=== PATIENT | male | born 1945 | race Caucasian/White ===

== ENCOUNTER 2017-07-11 01:15 | Emergency (ER) | payer MEDICARE ==
[~2017-07-11] VITALS: Ht 177.8 cm; Wt 88.2 kg
[~2017-07-11 01:15] MED LIST: AMOXICILLIN500 MG PO; ATENOLOL25 MG PO; HYDROCHLOR12.5 MG/CA PO; LORTAB5 PO
[2017-07-11 01:43] VITALS: BP 189/88
[2017-07-11] MEDS ORDERED: GENTAMICIN15 ML/BTL OD (02:05)
[2017-07-11] MEDS ORDERED: (None)3.5 GM OD (02:05)
== END 2017-07-11 02:14 | disposition home or self-care (01) ==
LOC: ED 01:15
DX: H10.9 Unspecified conjunctivitis (principal); I10 Essential (primary) hypertension; I25.2 Old myocardial infarction; F17.210 Nicotine dependence, cigarettes, uncomplicated; Z95.5 Presence of coronary angioplasty implant and graft

== ENCOUNTER 2017-08-30 01:37 | Emergency (ER) | payer MEDICARE ==
[~2017-08-30] VITALS: Ht 177.8 cm; Wt 87.2 kg
[~2017-08-30 01:37] MED LIST changes: +(None)3.5 GM OD; +GENTAMICIN15 ML/BTL OD
[2017-08-30 02:29] LABS: HEMATOCRIT 39.1 % (39.0-50.0); IMMATURE GRANULOCYTES 0.3 % (0.0-1.0); MEAN CELL VOLUME 92.4 fL CALC (80.0-100.0); MEAN CORPUSCULAR HGB 29.6 pG CALC (26.0-32.0); NEUT# 7.04 thou/uL (1.82-7.42); RED BLOOD COUNT 4.23 mill/uL (4.70-6.10); RED CELL DISTRI WIDTH 14.2 % (11.5-15.5)
[2017-08-30 02:31] LABS: HEMOGLOBIN 12.5 g/dl (14.0-18.0)
[2017-08-30 02:55] LABS: ALKALINE PHOSPHATASE 99 u/l (38-126); ANION GAP 13 (6-22 (CALC)); BILIRUBIN, TOTAL 0.3 mg/dL (0.0-1.4); BUN 14 mg/dL (8-23); BUN/CREATININE RATIO 17 (12-20 (CALC)); CARBON DIOXIDE 23 mmol/l (22-30); CHLORIDE 109 mmol/l (95-108); CREATININE 0.8 mg/dL (0.7-1.3); GFR > 60 ML/MIN (>=60 (CALC)); GFR FOR AFR.AMER. > 60 ML/MIN (>=60 (CALC)); POTASSIUM 4.1 mmol/l (3.5-5.1); SGOT/AST 20 u/l (19-48); SGPT/ALT 29 u/l (11-66); SODIUM 140 mmol/l (137-146)
[2017-08-30] MEDS ORDERED: INDOCIN25 MG PO (03:29)
[2017-08-30 03:33] VITALS: BP 152/77
== END 2017-08-30 03:37 | disposition home or self-care (01) ==
LOC: ED 01:37
PROVIDERS: Emergency Medicine
DX: M11.262 Other chondrocalcinosis, left knee (principal); I10 Essential (primary) hypertension; I25.2 Old myocardial infarction; Z95.5 Presence of coronary angioplasty implant and graft; F17.210 Nicotine dependence, cigarettes, uncomplicated

== ENCOUNTER 2018-01-19 19:04 | Emergency (ER) | payer MEDICARE ==
[~2018-01-19] VITALS: Ht 177.8 cm; Wt 84.5 kg
[~2018-01-19 19:04] MED LIST changes: +INDOCIN25 MG PO
[2018-01-19] MEDS ORDERED: LOPRESSOR 550 MG/TAB PO (19:37)
[2018-01-19] MEDS ORDERED: CLOPIDOGREL75 MG PO (19:37)
[2018-01-19] MEDS ORDERED: ATORVASTATIN CA80 MG PO (19:38)
[2018-01-19] MEDS ORDERED: TRAMADOL HCL50 MG PO (21:08)
[2018-01-19] MEDS ORDERED: MEDDOSEPAK PO (21:08)
[2018-01-19 21:10] VITALS: BP 157/78
== END 2018-01-19 21:10 | disposition home or self-care (01) ==
LOC: ED 19:04
DX: M17.12 Unilateral primary osteoarthritis, left knee (principal); M25.562 Pain in left knee; M25.462 Effusion, left knee

== ENCOUNTER 2018-02-25 08:03 | Emergency (ER) | payer MEDICARE ==
[~2018-02-25] VITALS: Ht 177.8 cm; Wt 85.0 kg
[~2018-02-25 08:03] MED LIST changes: +ATORVASTATIN CA80 MG PO; +CLOPIDOGREL75 MG PO; +LOPRESSOR 550 MG/TAB PO; +MEDDOSEPAK PO; +TRAMADOL HCL50 MG PO
[2018-02-25 08:16] VITALS: BP 128/78
[2018-02-25] MEDS ORDERED: MEDDOSEPAK PO (08:23)
[2018-02-25] MEDS ORDERED: DICLOFENAC50 MG PO (08:23)
== END 2018-02-25 08:36 | disposition home or self-care (01) ==
LOC: ED 08:03
DX: M25.562 Pain in left knee (principal); G89.29 Other chronic pain; M25.462 Effusion, left knee

== ENCOUNTER 2018-03-02 05:11 | Emergency (ER) | payer MEDICARE ==
[~2018-03-02] VITALS: Ht 175.3 cm; Wt 81.8 kg
[2018-03-02] VITALS (9 sets, daily range): BP systolic 103–124; BP diastolic 57–64
[~2018-03-02 05:11] MED LIST changes: +DICLOFENAC50 MG PO
[2018-03-02 06:08] LABS: IMMATURE GRANULOCYTES 1.8 % (0.0-5.0); MEAN CORPUSCULAR HGB CONC 31.7 g/L CALC (32.0-36.0); NEUT# 9.53 thou/uL (1.82-7.42); RED BLOOD COUNT 2.67 mill/uL (4.70-6.10); RED CELL DISTRI WIDTH 15.4 % (11.5-15.5)
[2018-03-02 06:10] LABS: HEMATOCRIT 22.7 % (39.0-50.0); HEMOGLOBIN 7.2 g/dl (14.0-18.0)
[2018-03-02 06:15] LABS: ALKALINE PHOSPHATASE 50 u/l (38-126); ANION GAP 13 (6-22 (CALC)); BUN 51 mg/dL (8-23); BUN/CREATININE RATIO 59 (12-20 (CALC)); CARBON DIOXIDE 20 mmol/l (22-30); CHLORIDE 109 mmol/l (95-108); CREATININE 0.9 mg/dL (0.7-1.3); GFR > 60 ML/MIN (>=60 (CALC)); GFR FOR AFR.AMER. > 60 ML/MIN (>=60 (CALC)); POTASSIUM 4.2 mmol/l (3.5-5.1); SGOT/AST 12 u/l (19-48); SODIUM 137 mmol/l (137-146)
[2018-03-02 06:21] LABS: ALBUMIN 2.7 g/dL (3.2-5.0)
[2018-03-02 06:27] LABS: MYOGLOBIN 23 ng/mL (0 - 121)
[2018-03-02 06:37] LABS: PROTHROMBIN TIME 10.5 SECONDS (9.0-12.5)
[2018-03-02 08:29] LABS: URINE BILIRUBIN - DIPSTICK NEGATIVE (NEGATIVE); URINE BLOOD DIPSTICK NEGATIVE (NEGATIVE); URINE COLOR YELLOW; URINE GLUCOSE - DIPSTICK NEGATIVE (NEGATIVE); URINE KETONE NEGATIVE (NEGATIVE); URINE LEUK ESTERASE NEGATIVE (NEGATIVE); URINE NITRITE - DIPSTICK NEGATIVE (Negative); URINE PH 5.5 (4.5-8.0); URINE PROTEIN - DIPSTICK NEGATIVE (NEG-TRACE); URINE UROBILINOGEN - DIPSTICK 0.2 E.U./dL (0.2)
--- NOTE | 2018-03-02 11:02 | NUR ---
2ND INFUSION BEGUN VITAL SIGNS 115/57 HEART RATE OF 68,
== END 2018-03-02 11:49 | disposition short-term general hospital (02) ==
LOC: ED 05:11
PROVIDERS: Emergency Medicine
PROC: 30233N1 Transfusion of Nonautologous Red Blood Cells into Peripheral Vein, Percutaneous Approach (ICD-10-PCS; principal; 2018-03-02)
PROC: 30233N1 Transfusion of Nonautologous Red Blood Cells into Peripheral Vein, Percutaneous Approach (ICD-10-PCS; 2018-03-02)
DX: D50.0 Iron deficiency anemia secondary to blood loss (chronic) (principal); I10 Essential (primary) hypertension; I25.10 Atherosclerotic heart disease of native coronary artery without angina pectoris; I25.2 Old myocardial infarction; F17.210 Nicotine dependence, cigarettes, uncomplicated; Z95.5 Presence of coronary angioplasty implant and graft; R00.2 Palpitations
CPT/HCPCS: P9016; S0164

== ENCOUNTER 2020-01-10 23:58 | Emergency (ER) | payer MEDICARE ==
[~2020-01-10] VITALS: Ht 175.3 cm; Wt 81.8 kg
[2020-01-11] MEDS ORDERED: ASPIRIN CHEWABL81 MG PO (00:25)
[2020-01-11] MEDS ORDERED: REPATHA140 MG/ML (00:26)
[2020-01-11] MEDS ORDERED: GENTAMICIN SULF5 ML OD (00:44)
[2020-01-11 01:00] VITALS: BP 186/90
== END 2020-01-11 01:05 | disposition home or self-care (01) ==
LOC: ED 23:58
PROC: 08C8XZZ Extirpation of Matter from Right Cornea, External Approach (ICD-10-PCS; principal; 2020-01-11)
DX: T15.01XA Foreign body in cornea, right eye, initial encounter (principal); I10 Essential (primary) hypertension; I25.2 Old myocardial infarction; F17.210 Nicotine dependence, cigarettes, uncomplicated; W22.8XXA Striking against or struck by other objects, initial encounter; Y93.H2 Activity, gardening and landscaping; Y92.007 Garden or yard of unspecified non-institutional (private) residence as the place of occurrence of the external cause; Z95.5 Presence of coronary angioplasty implant and graft

== ENCOUNTER 2021-11-20 14:53 | Emergency (ER) | payer MEDICARE, MEDICAID ==
[~2021-11-20] VITALS: Ht 175.3 cm; Wt 89.1 kg
[~2021-11-20 14:53] MED LIST changes: +ASPIRIN CHEWABL81 MG PO; +GENTAMICIN SULF5 ML OD; +REPATHA140 MG/ML
[2021-11-20 15:37] VITALS: BP 184/76
[2021-11-20 15:46] VITALS: BP 148/73
[2021-11-20 16:00] VITALS: BP 163/73
== END 2021-11-20 16:22 | disposition home or self-care (01) ==
LOC: ED 14:53
DX: R20.8 Other disturbances of skin sensation (principal); L29.9 Pruritus, unspecified; I10 Essential (primary) hypertension; I25.2 Old myocardial infarction; Z95.5 Presence of coronary angioplasty implant and graft; F17.210 Nicotine dependence, cigarettes, uncomplicated; Z98.890 Other specified postprocedural states

== ENCOUNTER 2021-12-01 19:41 | Emergency (ER) | payer MEDICARE, MEDICAID ==
[~2021-12-01] VITALS: Ht 175.3 cm; Wt 88.6 kg
[2021-12-01 20:44] VITALS: BP 175/84
[2021-12-01 21:01] VITALS: BP 146/66
[2021-12-01 21:15] VITALS: BP 151/75
[2021-12-01 21:31] VITALS: BP 170/87
[2021-12-01] MEDS ORDERED: MELOXICAM7.5 MG PO (21:33)
[2021-12-01] MEDS ORDERED: COLCHICINE0.6 M2 PO (21:33)
[2021-12-01] MEDS ORDERED: CARAFATE1 GM/10 M1 PO (21:33)
[2021-12-01] MEDS ORDERED: MEDDOSEPAK PO (21:33)
[2021-12-01 21:45] VITALS: BP 175/81
[2021-12-01 21:52] VITALS: BP 175/81
== END 2021-12-01 21:57 | disposition home or self-care (01) ==
LOC: ED 19:41
DX: M25.462 Effusion, left knee (principal); I10 Essential (primary) hypertension; I25.2 Old myocardial infarction; Z95.5 Presence of coronary angioplasty implant and graft; F17.200 Nicotine dependence, unspecified, uncomplicated

== ENCOUNTER 2022-02-01 13:18 | Emergency (ER) | payer MEDICARE, MEDICAID ==
[~2022-02-01] VITALS: Ht 172.7 cm; Wt 84.1 kg
[~2022-02-01 13:18] MED LIST changes: +CARAFATE1 GM/10 M1 PO; +COLCHICINE0.6 M2 PO; +MELOXICAM7.5 MG PO
[2022-02-01 13:35] VITALS: BP 194/74
[2022-02-01 14:01] VITALS: BP 163/66
[2022-02-01] MEDS ORDERED: TRAMADOL HYDROC50 M1 PO (14:19)
[2022-02-01 14:25] VITALS: BP 163/66
== END 2022-02-01 14:29 | disposition home or self-care (01) ==
LOC: ED 13:18
DX: M25.562 Pain in left knee (principal); I10 Essential (primary) hypertension; I25.2 Old myocardial infarction; Z95.5 Presence of coronary angioplasty implant and graft; F17.210 Nicotine dependence, cigarettes, uncomplicated

== ENCOUNTER 2022-06-07 18:48 | Emergency (ER) | payer MEDICARE, MEDICAID ==
[2022-06-07] VITALS (7 sets, daily range): BP systolic 131–157; BP diastolic 61–75
[~2022-06-07] VITALS: Ht 172.7 cm; Wt 83.9 kg
[~2022-06-07 18:48] MED LIST changes: +TRAMADOL HYDROC50 M1 PO
== END 2022-06-07 20:50 | disposition home or self-care (01) ==
LOC: ED 18:48
DX: S86.912A Strain of unspecified muscle(s) and tendon(s) at lower leg level, left leg, initial encounter (principal); I10 Essential (primary) hypertension; I25.2 Old myocardial infarction; F17.200 Nicotine dependence, unspecified, uncomplicated; W19.XXXA Unspecified fall, initial encounter; Y92.009 Unspecified place in unspecified non-institutional (private) residence as the place of occurrence of the external cause; Z95.5 Presence of coronary angioplasty implant and graft

== ENCOUNTER 2023-11-17 13:20 | Emergency (ER) | payer MEDICARE, MEDICAID ==
[~2023-11-17] VITALS: Ht 175.3 cm; Wt 86.1 kg
[~2023-11-17 13:20] MED LIST changes: +METOPROLOL TAR100 MG PO; +VOLTAREN - GENE75 MG PO
[2023-11-17 14:07] VITALS: BP 167/83
== END 2023-11-17 14:23 | disposition home or self-care (01) ==
LOC: ED 13:20
DX: U07.1 COVID-19 (principal); R05.9 Cough, unspecified; R52 Pain, unspecified; I10 Essential (primary) hypertension; I25.2 Old myocardial infarction; Z95.5 Presence of coronary angioplasty implant and graft